=== PATIENT | male | born 1950 | race Caucasian/White ===

== ENCOUNTER 2024-10-31 12:16 | Emergency (ER) | payer MEDICARE, SELFPAY ==
[2024-10-31 12:36] VITALS: BP 143/87; PULSE 74; RESP 18; TEMP 36.4; O2SAT 94; BMI 31.2
--- NOTE | 2024-10-31 12:58 | CRLHL7_ITS ---
For Patients: As a result of the Century Cures Act, medical imaging exams and procedure reports are released immediately into your electronic medical record. You may view this report before your referring provider. If you have questions, please contact your health care provider. INDICATION: Fall, facial injury TECHNIQUE: CT maxillofacial without contrast. COMPARISON: None. FINDINGS: Facial bones: Mildly comminuted right ZMC fracture. The right zygomatic fracture extends into the squamous portion of the temporal bone and mandibular fossa (2/96). Osseous fragments along the mandibular head may be related to fracture involvement. Irregularity of the nasal bone, likely representing nasal bone fracture. Pterygoids are intact. Orbits and globes: The above unchanged comminuted fracture of the right inferior orbital rim involving involves the infraorbital foramen. No evidence of intraorbital fat or musculature herniation. Subcutaneous emphysema along the right orbit with extension of gas along the right extraconal fat. No evidence of intraconal gas. Globes are intact. Sinuses: Blood products in the right maxillary sinus. Moderate ethmoid sinus opacification. Moderate left maxillary sinus mucosal thickening. Moderate right mastoid effusion. Soft tissues: Subcutaneous emphysema as described above. There is also small right TMJ effusion. IMPRESSION: Mildly comminuted right ZMC fracture with extension of fracture line into the squamous portion of the right temporal bone involving the mandibular fossa. There is also likely mildly comminuted fracture of the mandibular head with small right TMJ effusion. Comminuted fracture of the right inferior orbital wall fracture involves the infraorbital foramen. Right periorbital subcutaneous emphysema and soft tissue swelling extends into the extraconal fat. Moderate right mastoid effusion. Please note that all CT scans at this facility use dose modulation, iterative reconstruction, and/or weight-based dosing when appropriate to reduce radiation dose to as low as reasonably achievable. Dictated by Shila Fischer MD @ 10/31/2024 2:12:09 PM (Electronically Signed)
--- NOTE | 2024-10-31 12:58 | CRLHL7_ITS ---
For Patients: As a result of the Century Cures Act, medical imaging exams and procedure reports are released immediately into your electronic medical record. You may view this report before your referring provider. If you have questions, please contact your health care provider. INDICATION: Fall TECHNIQUE: CT cervical spine without contrast. COMPARISON: None. FINDINGS: Vertebrae: Straightening of normal cervical lordosis. There are no fractures or suspicious bony lesions. Discs and facet joints: There are diffuse degenerative changes in the disc spaces and facet joints. Mild central stenosis at C3-C4, C4-C5, C5-C6 and C6-C7. Severe bilateral neural foraminal narrowing at C4-C5, and C5-C6. Moderate left neural foraminal narrowing at C6-C7. Extraspinal findings: Paraspinous soft tissues are unremarkable. IMPRESSION: 1. No sign of acute injury. 2. Multilevel degenerative spondylosis. Please note that all CT scans at this facility use dose modulation, iterative reconstruction, and/or weight-based dosing when appropriate to reduce radiation dose to as low as reasonably achievable. Dictated by Shila Fischer MD @ 10/31/2024 1:53:15 PM (Electronically Signed)
--- NOTE | 2024-10-31 12:58 | CRLHL7_ITS ---
For Patients: As a result of the Century Cures Act, medical imaging exams and procedure reports are released immediately into your electronic medical record. You may view this report before your referring provider. If you have questions, please contact your health care provider. INDICATION: Fall TECHNIQUE: CT head without contrast. COMPARISON: None. FINDINGS: ventricles are symmetric. Basal cisterns patent. No sulcal effacement. BRAIN: Mild cerebral volume loss. No acute infarct or hemorrhage. VASCULAR: No acute abnormalities of the cavernous carotids and vertebral vessels on noncontrast exam. EXTRA-AXIAL: Extra-axial spaces are normal. EXTRA-CRANIAL: See separately dictated CT face for description of facial findings. Soft tissue swelling along the posterior scalp. IMPRESSION: No acute intracranial abnormality. Soft tissue swelling along the posterior scalp without evidence of underlying fracture. See separately dictated CT face for description of associated findings. Please note that all CT scans at this facility use dose modulation, iterative reconstruction, and/or weight-based dosing when appropriate to reduce radiation dose to as low as reasonably achievable. Dictated by Shila Fischer MD @ 10/31/2024 1:49:58 PM (Electronically Signed)
--- NOTE | 2024-10-31 13:00 | CRLHL7_ITS ---
For Patients: As a result of the Century Cures Act, medical imaging exams and procedure reports are released immediately into your electronic medical record. You may view this report before your referring provider. If you have questions, please contact your health care provider. Indication: Trauma. Technique: Left wrist, 3 views. Comparison: None. Findings/Impression: Bones: Acute mildly displaced comminuted distal radius fracture. Additional acute nondisplaced ulnar styloid fracture. Joint spaces: Associated joint effusion. Degenerative changes most pronounced at the triscaphe joint Soft tissues: Associated soft tissue swelling. Dictated by Raz Mackey MD @ 10/31/2024 1:44:08 PM (Electronically Signed)
--- NOTE | 2024-10-31 14:38 | ED_ITS ---
HPI - General Adult General Date Seen: 10/31/24 Chief complaint: Edema Stated complaint: Arm pain/Facial swelling from fall Time Seen by Provider: 10/31/24 12:55 Source: patient History of Present Illness HPI narrative: Patient is a 74-year-old male who presents after a fall 6 days ago. He tells me that he was at [facility] , he had had 5 beers which he says is pretty typical for him. He says that when he stood up, he felt lightheaded. He says this happens to him sometimes it usually clears, so he made his way to the parking lot by himself. He said he continued to feel lightheaded however and by the time he got to the parking lot he was holding on to the outside wall to steady himself. He said that he thought he could make it to his car and get himself home, but the next thing he knew he was on the ground and people were around him. He injured his right face and left wrist. He has had pain and swelling in the wrist since then, has had pain and swelling and bruising in the face since then, and has noticed that the skin to the right of his nose feels numb. He also noted that the right side of his face maybe seems a little droopy which is what ultimately made him come in today. He thought all this would improve but has not. He tells me he drinks probably 5 days a week, he acknowledges he drinks probably more than he should but says he has never had problems with withdrawal. He said he felt embarrassed because he thought people would assume that he fell because he was drunk, an assertion that he disagrees with. He lives by himself. Denies other substances. Review of Systems Status of ROS: Reports: 10 or more systems reviewed and unremarkable except as noted in History and below [facility] Social History Smoking Status: Never smoker How many standard drinks containing alcohol do you have on a typical day: 3 or 4 AUDIT-C Alcohol total score: 1 Non-prescribed substance use: denies use Exam Narrative: Exam Narrative: Vital signs reviewed In general, alert, nontoxic elderly male. Head: Normocephalic. Eyes: Subconjunctival hemorrhage noted on the right. Pupils are equal and reactive, extraocular movements are full without diplopia. ENT: Extensive bruising and swelling is noted over the right face; diffusely tender to palpation under the eye and along the cheek bone. Neck: Supple without adenopathy. Heart: Regular rate and rhythm without murmur. Lungs: Clear. No increased work of breathing, crackles or wheezes. Abdomen: Soft, nontender to palpation. Extremities: Well perfused, pulses intact. He has swelling of the left hand and wrist, tenderness over the distal radius. No tenderness over the hand. Radial pulse 2 +. No tenderness over the elbow or forearm. Neurologic: Alert, conversant. Speech fluent. Strength in upper and lower extremities is normal with the exception of the left upper extremity which is injured. Pain limits hand strength. On the face, he has some decreased sensation over the cheek to the right of the nose, he has a slight flattening of the corner of his mouth on the right, and was some mild does not have normal up lifting of the corner of his mouth. Upper face movement is preserved. He is able to close his eye fully. Skin: Warm, dry well perfused. Affect: Normal. Const: Vital Signs, click to edit/add: Vital Signs - 24 hr 10/31/24 12:36 10/31/24 16:14 Temperature 97.5 F L 97.6 F Pulse Rate [Pulse Oximeter] 74 87 Respiratory Rate 18 18 Blood Pressure [Ri ght Upper Arm] 143/87 H 154/80 H Pulse Oximetry 94 95 Oxygen Delivery Me thod Room Air Room Air Course Course ED Course: Patient had CT scans of the head, cervical spine as well as the facial bones. I did talk with the radiologist about proper imaging for him given my concern about facial nerve injury, he said that CT scan without contrast of the facial bones would still be appropriate. I also did an x-ray of his left wrist. By my review, he has a comminuted fracture of his distal radius but not significantly angulated. I elected to splint this in place with a sugar-tong splint, given a sling, will have him follow-up with orthopedics. Discussed with him the follow- up is important as this may be a surgical fracture. With regard to facial fractures, I discussed this with Dr. Kim, on-call for ENT. He recommended discussion with a trauma center given the fracture pattern and some abnormalities of the facial nerve. I talked with Dr. De Jesus, [facility] Emergency physician. He felt it was unlikely that anything emergent would need to be done, but also appropriate to send him there to make sure that he has adequate follow-up as our ENT physicians would not be able to m anage this. Patient would like to drive himself which I think in this situation is reasonable, particularly given that he may not be admitted. I did check some labs an EKG given that the patient described basically a syncopal episode last week. EKG by my review showed a sinus rhythm at 66 beats per minute, a normal QT, normal [place], no acute ischemic changes. He had normal labs including a CBC an d metabolic panel, and blood alcohol today was negative. CT scans of the head and cervical spine reviewed by myself, felt to be negative. Read by Radiology is negative. All reads linked below. Patient discharged, with instructions to proceed to [facility] Emergency Department for definitive treatment of facial fractures and facial nerve dysfunction. Vital Signs Vital signs: Initial Vital Signs Temperature 97.5 F L 10/31/24 12:36 Temperature Source Temporal Artery Scan 10/31/24 12:36 Pulse Rate 74 10/31/24 12:36 Respiratory Rate 18 10/31/24 12:36 Blood Pressure 143/87 H 10/31/24 12:36 Blood Pressure Mean 105 10/31/24 12:36 Blood Pressure Position Sitting 10/31/24 12:36 Pulse Oximetry 94 10/31/24 12:36 Oxygen Delivery Method Room Air 10/31/24 12:36 Vital Signs Temperature 97.5 F L 10/31/24 12:36 Pulse Rate 74 10/31/24 12:36 Respiratory Rate 18 10/31/24 12:36 Blood Pressure 143/87 H 10/31/24 12:36 Pulse Oximetry 94 10/31/24 12:36 Oxygen Delivery Method Room Air 10/31/24 12:36 Temperature 97.6 F 10/31/24 16:14 Pulse Rate 87 10/31/24 16:14 Respiratory Rate 18 10/31/24 16:14 Blood Pressure 154/80 H 10/31/24 16:14 Pulse Oximetry 95 10/31/24 16:14 Oxygen Delivery Method Room Air 10/31/24 16:14 Medical Decision Making Lab Data Labs: Lab Results 10/31/24 Range/Units 15:10 WBC 8.20 (4.50-11.00) K/uL RBC 4.18 L (4.30-5.90) m/uL Hgb 13.6 (13.5-17.5) gm/dL Hct 41.6 (37.0-53.0) % MCV 100 (80-100) fL MCH 33 (26-34) pg MCHC 33 (32-36) gm/dL RDW Coeff of Naomi 12.3 (11.5-15.5) % Plt Count 197 (140-440) K/uL Neut % (Auto) 70.1 (42.0-72.0) % Lymph % (Auto) 16.1 L (20-44) % [place] % (Auto) 7.8 (0.0-11.0) % Eos % (Auto) 5.1 (0.0-7.0) % Baso % (Auto) 0.4 (0.0-3.0) % Neut # (Auto) 5.75 (1.7-7.0) K/uL Lymph # (Auto) 1.30 (0.90-2.90) K/uL [place] # (Auto) 0.60 (0.00-0.90) K/UL Eos # (Auto) 0.42 (0.00-0.50) K/uL Baso # (Auto) 0.03 (0.00-0.30) K/uL Abs Immat Gran (auto) 0.04 (0.00-0.30) K/uL Imm/Tot Granulo (auto) 0.5 % Sodium 135 (135-149) mmol/L Potassium 4.3 (3.6-5.1) mmol/L Chloride 104 (96-114) mmol/L Carbon Dioxide 25 (20-32) mmol/L Anion Gap 6 L (7-15) mEq/L BUN 23 (7-30) mg/dL Creatinine 0.9 (0.5-1.5) mg/dL Estimated Creat Clear 62.70 Estimated GFR 90 ml/min Glucose 114 (60-115) mg/dL Calcium 9.1 (8.4-10.6) mg/dL Ethyl Alcohol < 0.01 L (0.01-0.03) % Imaging Data Head CT: Attestation: I have reviewed the pertinent imaging results. Radiologist's impression: Patient: [facility] Facility: [facility] Site . Site : 1950 Study: CT-Head WO-10/31/2024 1:43:09 PM Ordering Physician: Mihir Kohler Final Report: INDICATION: Fall TECHNIQUE: CT head without contrast. COMPARISON: None. FINDINGS: MASS EFFECT & VENTRICLES: No significant midline shift. The lateral ventricles are symmetric. Basal cisterns patent. No sulcal effacement. BRAIN: Mild cerebral volume loss. No acute infarct or hemorrhage. VASCULAR: No acute abnormalities of the cavernous carotids and vertebral vessels on noncontrast exam. EXTRA-AXIAL: Extra-axial spaces are normal. EXTRA-CRANIAL: See separately dictated CT face for description of facial findings. Soft tissue swelling along the posterior scalp. IMPRESSION: No acute intracranial abnormality. Soft tissue swelling along the posterior scalp without evidence of underlying fr acture. See separately dictated CT face for description of associated findings. Please note that all CT scans at this facility use dose modulation, iterative reconstruction, and/or weight-based dosing when appropriate to reduce radiation dose to as low as reasonably achievable. Dictated by Shila Fischer MD @ 10/31/2024 1:49:[address]: Attestation: I have reviewed the pertinent imaging results. Radiologist's impression: Patient: [facility] Facility: [facility] Site . Site : 1950 Study: CT-Facial WO-10/31/2024 1:44:13 PM Ordering Physician: Mihir Kohler Final Report: INDICATION: Fall, facial injury TECHNIQUE: CT maxillofacial without contrast. COMPARISON: None. FINDINGS: Facial bones: Mildly comminuted right ZMC fracture. The right zygomatic fracture extends into the squamous portion of the temporal bone and mandibular fossa (). Osseous fragments along the mandibular head may be related to fracture involvement. Irregularity of the nasal bone, likely representing nasal bone fracture. Pterygoids are intact. Orbits and globes: The above unchanged comminuted fracture of the right inferior orbital rim involving involves the infraorbital foramen. No evidence of intraorbital fat or musculature herniation. Subcutaneous emphysema along the right orbit with extension of gas along the right extraconal fat. No evidence of intraconal gas. Globes are intact. Sinuses: Blood products in the right maxillary sinus. Moderate ethmoid sinus opacification. Moderate left maxillary sinus mucosal thickening. Moderate right mastoid effusion. Soft tissues: Subcutaneous emphysema as described above. There is also small right TMJ effusion. IMPRESSION: Mildly comminuted right ZMC fracture with extension of fracture line into the squamous portion of the right temporal bone involving the mandibular fossa. There is also likely mildly comminuted fracture of the mandibular head with small right TMJ effusion. Comminuted fracture of the right inferior orbital wall fracture involves the infraorbital foramen. Right periorbital subcutaneous emphysema and soft tissue swelling extends into the extraconal fat. Moderate right mastoid effusion. Please note that all CT scans at this facility use dose modulation, iterative reconstruction, and/or weight-based dosing when appropriate to reduce radiation dose to as low as reasonably achievable. Dictated by Shila Fischer MD @ 10/31/2024 2:12:[address]: Attestation: I have reviewed the pertinent imaging results. Radiologist's impression: Patient: RONALD KENDRICK Facility: [facility] Site . Site : 1950 Study: CT-Spine Cervical WO-10/31/2024 1:43:41 PM Ordering Physician: Mihir Kohler Final Report: INDICATION: Fall TECHNIQUE: CT cervical spine without contrast. COMPARISON: None. FINDINGS: Vertebrae: Straightening of normal cervical lordosis. There are no fractures or suspicious bony lesions. Discs and facet joints: There are diffuse degenerative changes in the disc spaces and facet joints. Mild central stenosis at C3-C4, C4-C5, C5-C6 and C6-C7. Severe bilateral neural foraminal narrowing at C4-C5, and C5-C6. Moderate left neural foraminal narrowing at C6-C7. Extraspinal findings: Paraspinous soft tissues are unremarkable. IMPRESSION: 1. No sign of acute injury. 2. Multilevel degenerative spondylosis. Please note that all CT scans at this facility use dose modulation, iterative reconstruction, and/or weight-based dosing when appropriate to reduce radiation dose to as low as reasonably achievable. Dictated by Shila Fischer MD @ 10/31/2024 1:53:15 P Wrist x-ray: Attestation: I have reviewed the pertinent imaging results. Radiologist's impression: Patient: RONALD KENDRICK Facility: [facility] Site . Site : 1950 Study: XRay-Extremity Left WRIST 3V-10/31/2024 1:41:48 PM Ordering Physician: Mihir Kohler Final Report: Indication: Trauma. Technique: Left wrist, 3 views. Comparison: None. Findings/Impression: Bones: Acute mildly displaced comminuted distal radius fracture. Additional acute nondisplaced ulnar styloid fracture. Joint spaces: Associated joint effusion. Degenerative changes most pronounced at the triscaphe joint Soft tissues: Associated soft tissue swelling. Dictated by Raz Mackey MD @ 10/31/2024 1:44:08 PM Discharge Plan Discharge Clinical Impression: Multiple facial fractures, Weakness on right side of face, Distal radius fracture, left Patient Disposition: Xfer Other Condition: Stable Instructions: Facial Fracture (DC), Wrist Fracture in Adults (ED) Additional Instructions: 1) for facial fractures and weakness in the right side of your face, you should proceed to the ER at [facility] so that you can be evaluated by the facial trauma surgeon to determine next steps. 2) for your wrist fracture, you should wear the splint until you were re- evaluated at orthopedics. Please call [phone] schedule an appointment to be seen in clinic. Sling as desired. Stand Alone Forms: [employer] Info Instructions
[2024-10-31 15:18] LABS: Basophils Absolute Auto 0.03 K/uL (0.00-0.30); Basophils Percent Auto 0.4 % (0.0-3.0); Eosinophils Absolute Auto 0.42 K/uL (0.00-0.50); Eosinophils Percent Auto 5.1 % (0.0-7.0); Hematocrit 41.6 % (37.0-53.0); Hemoglobin* 13.6 gm/dL (13.5-17.5); Immature Granulocytes Abs Auto 0.04 K/uL (0.00-0.30); Immature Granulocytes Pct Auto 0.5 %; Lymphocytes Percent Auto 16.1 % (20-44); Mean Corpuscular HGB Conc 33 gm/dL (32-36); Mean Corpuscular Hemoglobin 33 pg (26-34); Mean Corpuscular Volume 100 fL (80-100); Monocytes Percent Auto 7.8 % (0.0-11.0); Neutrophils Absolute Auto 5.75 K/uL (1.7-7.0); Neutrophils Percent Auto 70.1 % (42.0-72.0); Platelet Count* 197 K/uL (140-440); RDW Coefficient of Variation % 12.3 % (11.5-15.5); Red Blood Count 4.18 m/uL (4.30-5.90)
[2024-10-31 15:19] LABS: Slide Review Reflex No
[2024-10-31 15:32] LABS: Chloride* 104 mmol/L (96-114); Potassium* 4.3 mmol/L (3.6-5.1); Sodium* 135 mmol/L (135-149)
[2024-10-31 15:34] LABS: Creatinine* 0.9 mg/dL (0.5-1.5); Estimated Glomerular Filt Rate 90 ml/min
[2024-10-31 15:35] LABS: Anion Gap 6 mEq/L (7-15); Blood Urea Nitrogen* 23 mg/dL (7-30); Calcium* 9.1 mg/dL (8.4-10.6); Carbon Dioxide* 25 mmol/L (20-32); Glucose* 114 mg/dL (60-115)
[2024-10-31 15:45] LABS: Ethanol* < 0.01 % (0.01-0.03)
[2024-10-31 16:14] VITALS: BP 154/80; PULSE 87; RESP 18; TEMP 36.4; O2SAT 95
== END 2024-10-31 16:35 | disposition other institution (70) ==
PROVIDERS: Emergency Provider Emergency Medicine; PCP Family Medicine
DX: S02.92XA Unspecified fracture of facial bones, initial encounter for closed fracture (principal); S52.502A Unspecified fracture of the lower end of left radius, initial encounter for closed fracture; W01.0XXA Fall on same level from slipping, tripping and stumbling without subsequent striking against object, initial encounter
CPT/HCPCS: 36415; 70450; 70486; 72125; 73110; 80048; 82077; 85025; 93005; 99284; 99285

== ENCOUNTER 2025-05-27 03:05 | Emergency (ER) | payer MEDICARE, SELFPAY ==
[2025-05-27] VITALS (23 sets, daily range): BP systolic 131–183; BP diastolic 74–107; PULSE 67–99; RESP 13–18; TEMP 36.7; O2SAT 92–99; BMI 31.9
--- OUTSIDE RECORDS SUMMARY | 2025-05-27 03:07 | XMS_ITS | Clinical Summary ---
Author Organization [facility] Address [address] [place] [id number] Care Team Providers Care [employer] Member Other Ranks Name Role Phone Unavailable Primary Care Provider Unavailabl e Allergies Active Allergy Reactions Criticality Noted Date Comments Lisinopril Rash 05/27/2021 Rash/hives Medications CPAPIndications: TE (obstructive sleep apnea) CPAP machine for home use at pressure 14 cmw, full face mask x1/3month with a full face cushion x1/mo 1 Each 11 2 Active clopidogreL (PLAVIX) 75 mg tabletIndication s:ST elevation myocardial infarction involving right coronary artery (HC) Take 1 Tablet (75 mg) by mouth once daily in the morning. 90 Tablet 3 4 Active rosuvastatin (CRESTOR) 20 mg tabletIndication s:ASHD (arterioscleroti c heart disease),Dyslipi demia Take 1 Tablet (20 mg) by mouth at bedtime. 90 Tablet 3 4 Active nitroglycerin (NITROSTAT) 0.4 mg sublingual tabletIndication s:ASHD (arterioscleroti c heart disease) Place 1 Tablet (0.4 mg) under the tongue every 5 minutes if needed for Chest Pain (Up to 3 doses). 25 Tablet 3 4 Active losartan (COZAAR) 25 mg tabletIndication s:HTN (hypertension) Take 0.5 Tablets (12.5 mg) by mouth once daily. 45 Tablet 3 4 Active aspirin 81 mg cap Take 1 Capsule by mouth once daily. Active isosorbide mononitrate (IMDUR) 30 mg extended release tablet 24 HourIndications: ASHD (arterioscleroti c heart disease) Take 1 Tablet (30 mg) by mouth once daily. You are due for a follow up in August of 2025. Please call [phone] in June to schedule before further refills will be authorized. 90 Tablet 1 5 Active carvediloL 12.5 mg tabletIndication s:Inferior NM (HC) TAKE 1 TABLET(12.5 MG) BY MOUTH TWICE DAILY WITH MEALS 180 Tablet 5 Active Active Problems Problem Noted Date Diagnosed Date Prediabetes 05/21/2021 Pre-diabetes 05/19/2021 ASHD (arteriosclerotic heart disease) 05/18/2021 Overview (05/19/2021): Inferior STEMI 05/17/21- MARVA x1 pRCA, MARVA x1 dRCA. 05/19/21- staged PCI. MARVA x 1 pLAD. 70% OM lesions (small vessel) left for med. therapy HTN (hypertension) 05/18/2021 TE 04/08/2019 AHI-26 04/12/2019 Overview (04/12/2019): On sleep study 04/2019 ST elevation myocardial infa rction involving right coronary artery Resolved Problems Problem Noted Date Diagnosed Date Resolved Date Dysthymic disorder 09/13/2007 9 Encounters Date Type Department Care Team Description 04/25/2025 Refill [facility] [address] [place] [address] Votel, Dmitry Gutierrez MD Refill Request (Carvedilol) from Last 3 Months Immunizations Immunization Administration Dates Next Due Influenza, Inactivated AIIV4 (Age 65+ Years) Preserv Free 07/12/2022 Pneumococcal Conj 20-valent (Prevnar 20) 022 Td (Age >=7 Years) 11/21/2006 Family History Medical History Relation Name Comments Other Brother 2 non hodgkins ly mphoma Arthritis Father Heart Disease Father heart attack Good Health Mother Cancer-breast No Family History Cancer-colon No Family History Relation Name Status Comments Brother 1 Alive nln-Hodgkin's l ymphoma Brother 2 Father (Age 78) heart trou ble Maternal Grandmother of cancer unknown origin Mother Alive Other Alive spouse-Laila Social History Tobacco Use Types Packs/Day Years Used Date Smoking Tobacco: Never Smokeless Tobacco: Never Tobacco Cessation:Counseling Given: Yes Alcohol Use Standard Drinks/Week Comments Yes 0 (1 standard drink = 0.6 oz pur e alcohol) occ. PHQ-2 Answer Date Recorded PHQ-2 TOTAL SCORE 0 08/30/2023 Social Connections Answer Date Recorded Do you often feel lonely or isolated from those around you? 0 08/08/2024 Financial Resource Strain Answer Date R ecorded Difficulty of Paying Living Expenses 3 08/08/2024 Difficulty of Paying Living Expenses Not on file 08/08/2024 Food Insecurity Answer Date Recorded Do you worry your food will run out before you are able to buy more? 1 08/08/2024 Transportation Needs Answer Date Record ed Does lack of transportation keep you from medica l appointments? 1 08/08/2024 Does lack of transportation keep you from work, meetings or getting things that you need? 1 08/08/2024 Housing Stability Answer Date Recorded What is your housing situation today? 1 08/08/2024 Utilities Answer Date Recorded Do you have trouble paying f or utilities (for example, heat, electricity, water, phone)? 1 08/08/2024 Sex and Gender Information Value Date Recorded Sex Assigned at Not on file Legal Sex Male 5:48 AM [employer] Gender Identity Not on file Sexual Orientation Not on file Obstetrics History Last Filed Vital Signs Vital Sign Reading Time Taken Comments Blood Pressure 145/88 08/08/2024 11:04 AM CDT Pulse 93 08/08/2024 10:38 AM CDT Temperature 37.1 C (98.7 F) 05/25/2021 12:38 PM CDT Respiratory Rate 16 05/25/2021 1:28 PM CDT Oxygen Saturation 96% 08/08/2024 10:38 AM CDT Inhaled Oxygen Concentration - - Weight 94.8 kg (209 lb) 08/14/2024 1:02 PM CDT Height 172.7 cm (5' 8) 08/14/2024 1:02 PM CDT Body Mass Index 31.78 08/14/2024 1:02 PM CDT Plan of Treatment Health Maintenance Due Date Last Done Comments Zoster (shingles) series for age 50+ (1 of 2) 2000 Medicare Wellness for age 65+ 2015 Tetanus booster 11/21/2016 11/21/2006 COVID-19 vaccine series ( season) 2024 08/30/2021, 08/04/2021 Depression screening for age 12+ 09/01/2024 09/01/2023, 08/30/2023, 07/12/2022, Additional history exists RSV vaccine for adults or (1 - 1-dose 75+ series) 2025 Influenza Vaccine (#1) 2025 07/12/2022 BMI (ht and wt on same day) for age 18+ 08/14/2025 08/14/2024, 08/08/2024, 01/31/2024, Additional history exists Lipids for age 45-75 08/08/2029 08/08/2024, 08/30/2023, 07/12/2022, Additional history exists Colonoscopy through age 75 07/25/203207/25 (Completed outside of [facility]) Hepatitis C screening for age 18-79 Completed 07/12/2022 Pneumococcal series for age 50+ Completed 07/12/2022 Hepatitis B series for 19+ Aged Out N o longer eligible based on patient's age to complete this topic Procedures Procedure Name Priority Date/Time Associated Diagnosis Comments LIPID PANEL W REFLEX MEASURED LDL Routine 08/08/2024 12:11 PM CDT Dyslipidemia, goal LDL below 70 ANTI HCV Routine 07/12/2022 4:56 PM CDT Need for hepatitis C screening test from Last 3 Months or Most Recently Relevant to Health Maintenance Results * (ABNORMAL) LIPID PANEL W REFLEX MEASURED LDL (08/08/2024 12:11 PM CDT) CHOLESTEROL, TOTAL 143 <200 mg/dL [facility] HDL CHOLESTEROL 54 > OR = 40 mg/dL [facility] TRIGLYCERIDES 159(H) <150 mg/dL [facility] LDL-CHOLESTEROL 65 mg/dL (calc) [facility] Comment: Reference range: <100 Desirable range <100 mg/dL for primary prevention; <70 mg/dL for patients with CHD or diabetic patients with > or = 2 CHD risk factors. LDL-C is now calculated using the Gina calculation, which is a validated novel method providing better accuracy than the Friedewald equation in the estimation of LDL-C. Natanael BELTRAN et al. ESTER. 2013;310(19): 4340-8238 (http://education.Game Blisters/faq/GFT738) CHOL/HDLC RATIO 2.6 <5.0 (calc) [facility] NON HDL CHOLESTEROL 89 <130 mg/dL (calc) [facility] Comment: For patients with diabetes plus 1 major ASCVD risk factor, treating to a non-HDL-C goal of <100 mg/dL (LDL-C of <70 mg/dL) is considered a therapeutic option. Blood BLOOD SPECIMEN / Unknown 08/08/2024 12:11 PM CDT 08/08/2024 12:12 PM CDT us Dmitry Zheng MD CHEMISTRY Final Re sult [employer] [facility] [address] [place] [address], [facility] [address] [place] [address] * ANTI HCV (07/12/2022 4:56 PM CDT) Pathologist [facility] HEPATITIS C ANTIBODY Non-React isael Non-React isael 07/13/2022 6:54 PM CDT [facility] Comment:Antibodies to HCV no t detected; does not exclude the possibility of exposure to HCV. Blood BLOOD SPECIMEN / Unknown Venipuncture / Unknown 07/12/2022 4:56 PM CDT 07/12/2022 4:57 PM CDT us Karrie Collins MD SEND OUTS Final Resul t [facility] [employer] [facility] [address] [place] [address], [place] from Last 3 Months or Most Recently Relevant to Health Maintenance Insurance [employer] COMP Advance Directives * Full Code (Latest Code Status on File) Date Activated Date Inactivated Comments 05/17/2021 11:19 PM 05/20/2021 12:37 PM Question Answer Comments Code Status Discussion: Discussed
--- NOTE | 2025-05-27 03:14 | ED.CHESTPAIN ---
HPI - Chest Pain General Time Seen by Provider: 03:14 <Victorino Frank MD - Last Filed: 05/27/25 06:01> Date Seen: 06/11/25 <Victorino Frank MD - Last Filed: 05/27/25 06:01> Chief Complaint: Chest Pain <Victorino Frank MD - Last Filed: 05/27/25 06:01> Stated Complaint: chest pain <Victorino Frank MD - Last Filed: 05/27/25 06:01> Time Seen by Provider: 05/27/25 03:11 <Victorino Frank MD - Last Filed: 05/27/25 06:01> Source: patient, RN notes reviewed and old records reviewed <Victorino Frank MD - Last Filed: 05/27/25 06:01> Mode of arrival: ambulatory <Victorino Frank MD - Last Filed: 05/27/25 06:01> Limitations: no limitations <Victorino Frank MD - Last Filed: 05/27/25 06:01> History of Present Illness HPI narrative: 75-year-old male who presents today with chest pain. Patient's history of coronary disease and has had 3 stents. He reports that he normally gets chest pain about once a week, takes one nitroglycerin with resolution, this is usually associated with activity. Tonight at about 10:30 p.m. started having some chest discomfort and fullness which progressed chest pain by 11:00 p.m.. He took 1 nitroglycerin which improved his symptoms any was able to go to sleep. However, he woke up about 2:00 a.m. and symptoms had returned, took a nitroglycerin and symptoms persisted so he came to the emergency department. He continues to have some chest fullness and pain. He denies nausea, vomiting, diarrhea, shortness of breath. The pain does not radiate anywhere. He says it feels similar to when he has had heart attacks in the past. He reports he took aspirin 325 mg at about 11:00 p.m.. <Victorino Frank MD - Last Filed: 05/27/25 06:01> Related Data Home Medications: Home Medications ?Medication ?Instructions ?Recorded ?Confirmed aspirin 81 mg capsule 81 mg PO DAILY 05/27/25 05/27/25 carvedilol 12.5 mg tablet 12.5 mg PO BID 05/27/25 05/27/25 clopidogrel 75 mg tablet 75 mg PO DAILY 05/27/25 05/27/25 isosorbide mononitrate 30 mg 30 mg PO DAILY 05/27/25 05/27/25 tablet,extended release 24 hr losartan 25 mg tablet PO 05/27/25 nitroglycerin 0.4 mg sublingual mg sublingual 05/27/25 tablet rosuvastatin 20 mg tablet 20 mg PO QPM 05/27/25 05/27/25 <Victorino Frank MD - Last Filed: 05/27/25 06:01> Allergies/Adverse Reactions: Allergies Allergy/AdvReac Type Severity Reaction Status Date / Time No Known Drug Allergies Allergy Verified 05/27/25 03:15 <Victorino Frank MD - Last Filed: 05/27/25 06:01> [facility] Social History: Social History Smoking Status: Never smoker How many standard drinks containing alcohol do you have on a typical day: 3 or 4 AUDIT-C Alcohol total score: 1 Non-prescribed substance use: denies use <Victorino Frank MD - Last Filed: 05/27/25 06:01> Exam Narrative Exam Narrative: General: Well-developed and well-nourished, no acute distress Head: Atraumatic and normocephalic Eyes: Pupils are equal reactive, extraocular motions intact, conjunctiva clear ENT: External nose and ears are normal, posterior pharynx without erythema or exudate Neck: No midline cervical tenderness, full spontaneous range of motion the neck, trachea midline, no adenopathy Heart: Regular rate and rhythm no murmurs or thrills Lungs: Clear to auscultation bilaterally without wheezes or crackles Abdomen: Soft, nontender, nondistended with active bowel sounds Musculoskeletal: No tenderness, deformity, or edema Neurologic: Awake, alert, and oriented x3, no gross focal neurologic deficits, cranial nerves intact as tested Psych: Mood and affect are appropriate Skin: No rashes <Victorino Frank MD - Last Filed: 05/27/25 06:01> Const Vital Signs, click to edit/add: Vital Signs - 24 hr 05/27/25 03:12 05/27/25 03:19 05/27/25 03:25 Temperature 98.1 F Pulse Rate 95 Pulse Rate [Pulse Oximeter] 99 Respiratory Rate 16 17 Blood Pressure Blood Pressure [Right Upper Arm] 183/103 H Pulse Oximetry 96 97 97 Oxygen Delivery Method Room Air 05/27/25 03:27 05/27/25 03:32 05/27/25 03:52 Temperature Pulse Rate 90 91 88 Pulse Rate [Pulse Oximeter] Respiratory Rate 18 18 15 Blood Pressure 151/75 H 148/74 H 162/80 H Blood Pressure [Right Upper Arm] Pulse Oximetry 97 95 96 Oxygen Delivery Method 05/27/25 03:57 05/27/25 04:02 05/27/25 04:03 Temperature Pulse Rate 88 88 87 Pulse Rate [Pulse Oximeter] Respiratory Rate 16 13 17 Blood Pressure 140/86 H 131/81 Blood Pressure [Right Upper Arm] Pulse Oximetry 93 93 92 Oxygen Delivery Method 05/27/25 04:32 05/27/25 05:01 05/27/25 05:32 Temperature 98.1 F Pulse Rate 80 81 81 Pulse Rate [Pulse Oximeter] Respiratory Rate 14 16 18 Blood Pressure 138/80 142/82 H 145/81 H Blood Pressure [Right Upper Arm] Pulse Oximetry 96 95 95 Oxygen Delivery Method Room Air 05/27/25 06:02 05/27/25 06:32 05/27/25 07:02 Temperature Pulse Rate 82 75 76 Pulse Rate [Pulse Oximeter] Respiratory Rate 14 17 16 Blood Pressure 167/83 H 155/102 H 160/91 H Blood Pressure [Right Upper Arm] Pulse Oximetry 97 95 95 Oxygen Delivery Method 05/27/25 07:32 05/27/25 07:45 05/27/25 08:02 Temperature Pulse Rate 71 69 67 Pulse Rate [Pulse Oximeter] Respiratory Rate 14 14 Blood Pressure 151/102 H 158/93 H Blood Pressure [Right Upper Arm] Pulse Oximetry 94 93 96 Oxygen Delivery Method 05/27/25 08:32 05/27/25 09:01 05/27/25 09:30 Temperature Pulse Rate 73 70 76 Pulse Rate [Pulse Oximeter] Respiratory Rate 13 16 16 Blood Pressure 161/89 H 153/95 H Blood Pressure [Right Upper Arm] Pulse Oximetry 97 98 97 Oxygen Delivery Method 05/27/25 09:32 Temperature Pulse Rate 80 Pulse Rate [Pulse Oximeter] Respiratory Rate Blood Pressure 163/103 H Blood Pressure [Right Upper Arm] Pulse Oximetry 97 Oxygen Delivery Method <Victorino Frank MD - Last Filed: 05/27/25 06:01> Vital Signs - 24 hr 05/27/25 03:12 05/27/25 03:19 05/27/25 03:25 Temperature 98.1 F Pulse Rate 95 Pulse Rate [Pulse Oximeter] 99 Respiratory Rate 16 17 Blood Pressure Blood Pressure [Right Upper Arm] 183/103 H Pulse Oximetry 96 97 97 Oxygen Delivery Method Room Air 05/27/25 03:27 05/27/25 03:32 05/27/25 03:52 Temperature Pulse Rate 90 91 88 Pulse Rate [Pulse Oximeter] Respiratory Rate 18 18 15 Blood Pressure 151/75 H 148/74 H 162/80 H Blood Pressure [Right Upper Arm] Pulse Oximetry 97 95 96 Oxygen Delivery Method 05/27/25 03:57 05/27/25 04:02 05/27/25 04:03 Temperature Pulse Rate 88 88 87 Pulse Rate [Pulse Oximeter] Respiratory Rate 16 13 17 Blood Pressure 140/86 H 131/81 Blood Pressure [Right Upper Arm] Pulse Oximetry 93 93 92 Oxygen Delivery Method 05/27/25 04:32 05/27/25 05:01 05/27/25 05:32 Temperature 98.1 F Pulse Rate 80 81 81 Pulse Rate [Pulse Oximeter] Respiratory Rate 14 16 18 Blood Pressure 138/80 142/82 H 145/81 H Blood Pressure [Right Upper Arm] Pulse Oximetry 96 95 95 Oxygen Delivery Method Room Air 05/27/25 06:02 05/27/25 06:32 05/27/25 07:02 Temperature Pulse Rate 82 75 76 Pulse Rate [Pulse Oximeter] Respiratory Rate 14 17 16 Blood Pressure 167/83 H 155/102 H 160/91 H Blood Pressure [Right Upper Arm] Pulse Oximetry 97 95 95 Oxygen Delivery Method 05/27/25 07:32 05/27/25 07:45 05/27/25 08:02 Temperature Pulse Rate 71 69 67 Pulse Rate [Pulse Oximeter] Respiratory Rate 14 14 Blood Pressure 151/102 H 158/93 H Blood Pressure [Right Upper Arm] Pulse Oximetry 94 93 96 Oxygen Delivery Method 05/27/25 08:32 05/27/25 09:01 05/27/25 09:30 Temperature Pulse Rate 73 70 76 Pulse Rate [Pulse Oximeter] Respiratory Rate 13 16 16 Blood Pressure 161/89 H 153/95 H Blood Pressure [Right Upper Arm] Pulse Oximetry 97 98 97 Oxygen Delivery Method 05/27/25 09:32 Temperature Pulse Rate 80 Pulse Rate [Pulse Oximeter] Respiratory Rate Blood Pressure 163/103 H Blood Pressure [Right Upper Arm] Pulse Oximetry 97 Oxygen Delivery Method <Devi Burciaga MD - Last Filed: 05/27/25 10:12> Course Course ED Course: Reviewed most recent nuclear medicine stress test from August 2024 performed for stable angina, patient did become symptomatic with chest, jaw, arm pain, and stress EKG demonstrated an area of ischemia, myocardial perfusion also demonstrated moderate ischemia the basal is an anterior lateral and lateral soni, hypokinesis of left ventricle and ejection fraction 68%. Patient presents today with chest pain. Started about 4 hours prior to coming the emergency department, improved after nitroglycerin but then returned about an hour and half prior to coming the emergency department and has persisted since then. Took a nitroglycerin with some improvement but still having pain. On exam here, patient's hypertensive, awake and alert, no apparent distress. Heart is regular, lungs are clear, no abdominal tenderness. Initial EKG but with nonspecific ST changes, compared to prior 2020 does have [address] depressions that are nondiagnostic. Patient is still having pain. Nitroglycerin ordered, he took aspirin at home. Labs are ordered anticipate admission versus transfer for at least unstable angina and possible NSTEMI. EKG independently interpreted by me performed at 3:13 a.m. demonstrates sinus rhythm rate 94, [place] 140, QTC 437, slight ST depression in 1, to, V4 through V6. Compared to prior May 2021, ST depressions are new. Compared to prior October 2024, ST depressions are new <Victorino Frank MD - Last Filed: 05/27/25 06:01> Reevaluation(s) Time of Reevaluation #1: 04:07 <Victorino Frank MD - Last Filed: 05/27/25 06:01> Reevaluation #1: Chest x-ray independently interpreted by me with mild vascular congestion. Labs independently interpreted by me with normal basic panel, normal BNP. Patient is pain-free with one dose of nitroglycerin. Will monitor and repeat troponin, disposition based on those results and consultation with Cardiology. <Victorino Frank MD - Last Filed: 05/27/25 06:01> Time of Reevaluation #2: 05:39 <Victorino Frank MD - Last Filed: 05/27/25 06:01> Reevaluation #2: Repeat troponin 0.19, patient remains pain-free. Will start heparin and discuss with cardiology. <Victorino Frank MD - Last Filed: 05/27/25 06:01> Time of Reevaluation #3: 06:00 <Victorino Frank MD - Last Filed: 05/27/25 06:01> Reevaluation #3: Care discussed with Dr. Milian, [facility] who agrees with initiation of heparin and plan to transfer to [place]. <Victorino Frank MD - Last Filed: 05/27/25 06:01> Additional Reevaluation(s): 10:11 a.m.: Patient remains asymptomatic, chest pain improved. EKG done prior to just charge by nursing staff shows normal sinus rhythm, 72 beats per minute. <Devi Burciaga MD - Last Filed: 05/27/25 10:12> Vital Signs Vital signs: Initial Vital Signs Temperature 98.1 F 05/27/25 03:12 Temperature Source Temporal Artery Scan 05/27/25 03:12 Pulse Rate 99 05/27/25 03:12 Respiratory Rate 16 05/27/25 03:12 Blood Pressure 183/103 H 05/27/25 03:12 Blood Pressure Mean 129 H 05/27/25 03:12 Blood Pressure Position Sitting 05/27/25 03:12 Pulse Oximetry 96 05/27/25 03:12 Oxygen Delivery Method Room Air 05/27/25 03:12 Vital Signs Temperature 98.1 F 05/27/25 03:12 Pulse Rate 99 05/27/25 03:12 Respiratory Rate 16 05/27/25 03:12 Blood Pressure 183/103 H 05/27/25 03:12 Pulse Oximetry 96 05/27/25 03:12 Oxygen Delivery Method Room Air 05/27/25 03:12 Temperature 98.1 F 05/27/25 05:32 Pulse Rate 80 05/27/25 09:32 Respiratory Rate 16 05/27/25 09:30 Blood Pressure 163/103 H 05/27/25 09:32 Pulse Oximetry 97 05/27/25 09:32 Oxygen Delivery Method Room Air 05/27/25 04:32 <Victorino Frank MD - Last Filed: 05/27/25 06:01> Initial Vital Signs Temperature 98.1 F 05/27/25 03:12 Temperature Source Temporal Artery Scan 05/27/25 03:12 Pulse Rate 99 05/27/25 03:12 Respiratory Rate 16 05/27/25 03:12 Blood Pressure 183/103 H 05/27/25 03:12 Blood Pressure Mean 129 H 05/27/25 03:12 Blood Pressure Position Sitting 05/27/25 03:12 Pulse Oximetry 96 05/27/25 03:12 Oxygen Delivery Method Room Air 05/27/25 03:12 Vital Signs Temperature 98.1 F 05/27/25 03:12 Pulse Rate 99 05/27/25 03:12 Respiratory Rate 16 05/27/25 03:12 Blood Pressure 183/103 H 05/27/25 03:12 Pulse Oximetry 96 05/27/25 03:12 Oxygen Delivery Method Room Air 05/27/25 03:12 Temperature 98.1 F 05/27/25 05:32 Pulse Rate 80 05/27/25 09:32 Respiratory Rate 16 05/27/25 09:30 Blood Pressure 163/103 H 05/27/25 09:32 Pulse Oximetry 97 05/27/25 09:32 Oxygen Delivery Method Room Air 05/27/25 04:32 <Devi Burciaga MD - Last Filed: 05/27/25 10:12> Medications Administered Medications: Generic Name Dose Route Start Last Admin Trade Name Freq PRN Reason Stop Dose Admin Heparin Sodium/Dextrose 25,000 unit in 500 mls @ 0 mls/hr 05/27/25 06:00 05/27/25 06:01 Heparin IV 1,000 unit/hr .Q0M ANDRE 20 mls/hr Protocol Administration Per Protocol Nitroglycerin 0.4 mg 05/27/25 03:50 05/27/25 03:51 Nitroglycerin 0.4 Mg Tab.Subl SUBLINGUAL 0.4 mg Q5M PRN Administration Chest Pain Discontinued Medications Generic Name Dose Route Start Last Admin Trade Name Freq PRN Reason Stop Dose Admin Heparin Sodium (Porcine) 4,000 unit 05/27/25 05:54 05/27/25 06:00 Heparin 5,000 Unit/0.5 Ml Inj IVP 05/27/25 05:55 4,000 unit ONCE ONE Administration <Victorino Frank MD - Last Filed: 05/27/25 06:01> Generic Name Dose Route Start Last Admin Trade Name Freq PRN Reason Stop Dose Admin Heparin Sodium/Dextrose 25,000 unit in 500 mls @ 0 mls/hr 05/27/25 06:00 05/27/25 06:01 Heparin IV 1,000 unit/hr .Q0M ANDRE 20 mls/hr Protocol Administration Per Protocol Nitroglycerin 0.4 mg 05/27/25 03:50 05/27/25 03:51 Nitroglycerin 0.4 Mg Tab.Subl SUBLINGUAL 0.4 mg Q5M PRN Administration Chest Pain Discontinued Medications Generic Name Dose Route Start Last Admin Trade Name Freq PRN Reason Stop Dose Admin Heparin Sodium (Porcine) 4,000 unit 05/27/25 05:54 05/27/25 06:00 Heparin 5,000 Unit/0.5 Ml Inj IVP 05/27/25 05:55 4,000 unit ONCE ONE Administration <Devi Burciaga MD - Last Filed: 05/27/25 10:12> MDM - Chest Pain Lab Data Labs: Lab Results 05/27/25 05/27/25 05/27/25 Range/Units 03:20 03:23 05:22 WBC 7.94 (4.50-11.00) K/uL RBC 4.19 L (4.30-5.90) m/uL Hgb 13.9 (13.5-17.5) gm/dL Hct 40.9 (37.0-53.0) % MCV 98 (80-100) fL MCH 33 (26-34) pg MCHC 34 (32-36) gm/dL RDW Coeff of Naomi 12.9 (11.5-15.5) % Plt Count 186 (140-440) K/uL Neut % (Auto) 57.6 (42.0-72.0) % Lymph % (Auto) 24.4 (20-44) % [place] % (Auto) 11.3 H (0.0-11.0) % Eos % (Auto) 6.2 (0.0-7.0) % Baso % (Auto) 0.4 (0.0-3.0) % Neut # (Auto) 4.57 (1.7-7.0) K/uL Lymph # (Auto) 1.94 (0.90-2.90) K/uL [place] # (Auto) 0.90 (0.00-0.90) K/UL Eos # (Auto) 0.49 (0.00-0.50) K/uL Baso # (Auto) 0.03 (0.00-0.30) K/uL Abs Immat Gran (auto) 0.01 (0.00-0.30) K/uL Imm/Tot Granulo (auto) 0.1 % INR 0.93 (0.91-1.10) APTT 27 (23-33) Seconds Sodium 140 (135-149) mmol/L Potassium 4.3 (3.6-5.1) mmol/L Chloride 107 (96-114) mmol/L Carbon Dioxide 27 (20-32) mmol/L Anion Gap 6 L (7-15) mEq/L BUN 21 (7-30) mg/dL Creatinine 1.1 (0.5-1.5) mg/dL Estimated Creat Clear 56.14 Estimated GFR 70 ml/min Glucose 106 (60-115) mg/dL Calcium 9.4 (8.4-10.6) mg/dL Magnesium 1.9 (1.5-2.6) mg/dL NT-Pro-B Natriuret Pep 35 (See Note) pg/mL POC Troponin I 0.04 0.19 H (0.01-0.04) ng/ml <Victorino Frank MD - Last Filed: 05/27/25 06:01> Lab Results 05/27/25 05/27/25 05/27/25 Range/Units 03:20 03:23 05:22 WBC 7.94 (4.50-11.00) K/uL RBC 4.19 L (4.30-5.90) m/uL Hgb 13.9 (13.5-17.5) gm/dL Hct 40.9 (37.0-53.0) % MCV 98 (80-100) fL MCH 33 (26-34) pg MCHC 34 (32-36) gm/dL RDW Coeff of Naomi 12.9 (11.5-15.5) % Plt Count 186 (140-440) K/uL Neut % (Auto) 57.6 (42.0-72.0) % Lymph % (Auto) 24.4 (20-44) % [place] % (Auto) 11.3 H (0.0-11.0) % Eos % (Auto) 6.2 (0.0-7.0) % Baso % (Auto) 0.4 (0.0-3.0) % Neut # (Auto) 4.57 (1.7-7.0) K/uL Lymph # (Auto) 1.94 (0.90-2.90) K/uL [place] # (Auto) 0.90 (0.00-0.90) K/UL Eos # (Auto) 0.49 (0.00-0.50) K/uL Baso # (Auto) 0.03 (0.00-0.30) K/uL Abs Immat Gran (auto) 0.01 (0.00-0.30) K/uL Imm/Tot Granulo (auto) 0.1 % INR 0.93 (0.91-1.10) APTT 27 (23-33) Seconds Sodium 140 (135-149) mmol/L Potassium 4.3 (3.6-5.1) mmol/L Chloride 107 (96-114) mmol/L Carbon Dioxide 27 (20-32) mmol/L Anion Gap 6 L (7-15) mEq/L BUN 21 (7-30) mg/dL Creatinine 1.1 (0.5-1.5) mg/dL Estimated Creat Clear 56.14 Estimated GFR 70 ml/min Glucose 106 (60-115) mg/dL Calcium 9.4 (8.4-10.6) mg/dL Magnesium 1.9 (1.5-2.6) mg/dL NT-Pro-B Natriuret Pep 35 (See Note) pg/mL POC Troponin I 0.04 0.19 H (0.01-0.04) ng/ml <Devi Burciaga MD - Last Filed: 05/27/25 10:12> Critical Care Time Critical Care Time Critical Care Time: Yes Attestation: The patient required my highest level preparedness to intervene emergently and I personally spent this critical care time directly and personally managing the patient. This critical care time included: Obtaining a history; Examining the patient; Pulse oximetry; Ordering and reviewing of studies; Arranging urgent treatment with development of a management plan; Evaluation of patients response to treatment; Frequent reassessment discussions with other providers. This critical care time was performed to assess and manage the high probability of imminent life-threatening deterioration that could result in multiorgan failure. It was exclusive of separate billable procedures and treating other patients and teaching time. <Victorino Frank MD - Last Filed: 05/27/25 06:01> Total Critical Care Time in Minutes: 40 <Victorino Frank MD - Last Filed: 05/27/25 06:01> Discharge Plan Discharge Clinical Impression: Non-ST elevation [place] (NSTEMI) <Victorino Frank MD - Last Filed: 05/27/25 06:01> Patient Disposition: [facility] <Victorino Frank MD - Last Filed: 05/27/25 06:01> Prescriptions: No Action carvedilol 12.5 mg tablet 12.5 mg PO BID isosorbide mononitrate 30 mg tablet extended release 24 hr 30 mg PO DAILY clopidogrel 75 mg tablet 75 mg PO DAILY losartan 25 mg tablet PO nitroglycerin 0.4 mg tablet, sublingual sublingual rosuvastatin 20 mg tablet 20 mg PO QPM aspirin 81 mg capsule 81 mg PO DAILY <Victorino Frank MD - Last Filed: 05/27/25 06:01> Stand Alone Forms: My[facility] Info Instructions <Victorino Frank MD - Last Filed: 05/27/25 06:01>
--- NOTE | 2025-05-27 03:23 | CRLHL7_ITS ---
For Patients: As a result of the Century Cures Act, medical imaging exams and procedure reports are released immediately into your electronic medical record. You may view this report before your referring provider. If you have questions, please contact your health care provider. Indication: Chest pain. Technique: Chest 1 view. Comparison: None. Findings/Impression: The cardiomediastinal silhouette is magnified. There is mild pulmonary vascular congestion. No definite confluent airspace opacity is appreciated. Mild bibasilar atelectasis. No pleural effusion or pneumothorax. No acute osseous abnormality. Dictated by Tomasz Cohn MD @ 05/27/2025 3:43:01 AM (Electronically Signed)
[2025-05-27 03:27] LABS: Troponin, Point-of-Care* 0.04 ng/ml (0.01-0.04)
[2025-05-27 03:33] LABS: Hematocrit 40.9 % (37.0-53.0); Hemoglobin* 13.9 gm/dL (13.5-17.5); Immature Granulocytes Abs Auto 0.01 K/uL (0.00-0.30); Immature Granulocytes Pct Auto 0.1 %; Lymphocytes Absolute Auto 1.94 K/uL (0.90-2.90); Mean Corpuscular HGB Conc 34 gm/dL (32-36); Mean Corpuscular Hemoglobin 33 pg (26-34); Mean Corpuscular Volume 98 fL (80-100); RDW Coefficient of Variation % 12.9 % (11.5-15.5); Red Blood Count 4.19 m/uL (4.30-5.90); White Blood Count* 7.94 K/uL (4.50-11.00)
[2025-05-27 03:34] LABS: Slide Review Reflex No
[2025-05-27 03:45] LABS: Chloride* 107 mmol/L (96-114)
[2025-05-27 03:46] LABS: Potassium* 4.3 mmol/L (3.6-5.1); Sodium* 140 mmol/L (135-149)
[2025-05-27 03:49] LABS: Anion Gap 6 mEq/L (7-15); Blood Urea Nitrogen* 21 mg/dL (7-30); Calcium* 9.4 mg/dL (8.4-10.6); Carbon Dioxide* 27 mmol/L (20-32); Creatinine* 1.1 mg/dL (0.5-1.5); Est. Creatinine Clearance* 56.14; Estimated Glomerular Filt Rate 70 ml/min; Glucose* 106 mg/dL (60-115)
[2025-05-27] MEDS: NITROGLYCERIN 0.4 MG TAB.SUBL SUBLINGUAL (03:51)
[2025-05-27 04:00] LABS: NT Pro B Type NatriureticPept* 35 pg/mL (See Note)
[2025-05-27 05:38] LABS: Troponin, Point-of-Care* 0.19 ng/ml (0.01-0.04)
[2025-05-27] MEDS: HEPARIN 5,000 UNIT/0.5 ML INJ 4000 UNIT IVP (06:00)
[2025-05-27] MEDS: HEPARIN 25,000 UNIT/500 ML BAG 20 UNIT IV (06:01)
[2025-05-27 06:12] LABS: INR 0.93 (0.91-1.10); Prothrombin Time 13.3 Seconds
== END 2025-05-27 10:22 | disposition short-term general hospital (02) ==
PROVIDERS: Emergency Provider Family Medicine; PCP Family Medicine
DX: I21.4 Non-ST elevation (NSTEMI) myocardial infarction (principal); R06.89 Other abnormalities of breathing
CPT/HCPCS: 36415; 71045; 80048; 83735; 83880; 84484; 85025; 85610; 85730; 93005; 94761; 99285; 99291; A9270; J1644

== ENCOUNTER 2025-05-27 10:12 | Outpatient (CLI) | payer MEDICARE, SELFPAY | END 2025-05-27 10:13 | disposition home or self-care (01) | PROVIDERS: PCP Family Medicine; Visit Provider Family Medicine | DX: R07.89 Other chest pain (principal) | CPT/HCPCS: A0425; A0434 ==